=== PATIENT | male | born 1990 | race Caucasian/White ===

== ENCOUNTER 2024-01-20 01:46 | Inpatient (IN) | payer BC, SELFPAY ==
[2024-01-20] VITALS (10 sets, daily range): BP systolic 128–149; BP diastolic 75–97; PULSE 63–85; RESP 15–18; TEMP 36.1–36.6; O2SAT 95–100
--- NOTE | ~2024-01-20 | US_ITS ---
US abdomen limited INDICATION: Epigastric pain PROCEDURE: Realtime right upper abdominal ultrasound. COMPARISON: No prior studies for comparison. FINDINGS: The pancreas is normal without focal mass or pancreatic ductal dilation. Liver echotexture is increased, consistent with fatty infiltration. There is normal directional flow in the portal ve in. Bladder wall is mildly thickened. No definite gallbladder stones Common bile duct measures 8 mm. No sonographic Leigh's sign. IMPRESSION: 1: Gallbladder wall thickening with mild dilation of the common bile duct. Consider a calculus cholec ystitis in the appropriate clinical setting. 2: Fatty infiltration of the liver. Reviewed, dictated and finalized at location B. IMPRESSION: 1: Gallbladder wall thickening with mild dilation of the common bile duct. Cons ider a calculus cholecystitis in the appropriate clinical setting. 2: Fatty infiltration of the liver.
--- NOTE | ~2024-01-20 | CT_ITS ---
CT of the Abdomen and Pelvis: Indication: Abdominal pain Technique: 2.5 mm axial scans were obtained through the abdomen and pelvis following intravenous adm inistration of 100 cc of Omnipaque 350. Dose reduction technique was used on this scan by utilizing a utomated exposure control and iterative reconstruction technique. The dose-length product (DLP) was 1 797.91 mGy-cm. Findings: Scans through the lung bases are unremarkable. There is gallbladder sludge and small stones with probable mild gallbladder wall thickening and minim al pericholecystic inflammatory change. There is mild periportal edema. There are probable distal com mon bile duct calcified stones, measuring 3 mm and 6 mm respectively (axial images 81, 85). The splee n, pancreas, adrenals and kidneys are within normal limits. No evidence of aortic aneurysm. No lymp hadenopathy. No bowel obstruction or bowel wall thickening. There is no evidence to suggest acute appendicitis. Images through the pelvis were performed. Urinary bladder unremarkable. No pelvic mass seen. No ascit es. Impression: Cholelithiasis and gallbladder sludge, with probable superimposed acute cholecystitis. Correlate clin ically. Consider HIDA scan for further evaluation as indicated. Probable distal common bile duct stones, as detailed above, compatible choledocholithiasis. No CT omero dence for acute pancreatitis. Reviewed, dictated and finalized at location . Impression: Cholelithiasis and gallbladder sludge, with probable superimposed acute cholecy stitis. Correlate clinically. Consider HIDA scan for further evaluation as shahriar cated. Probable distal common bile duct stones, as detailed above, compatible choledoc holithiasis. No CT evidence for acute pancreatitis.
--- NOTE | ~2024-01-20 | MR_ITS ---
EXAMINATION: MR MRCP wo/w con/w 3D wo ind DATE: 01/20/2024 12:20 INDICATION: Right upper quadrant abdominal pain. Assess for choledocholithiasis. TECHNIQUE: Magnetic resonance imaging (MRI) of the abdomen was performed without and with 20 mL Multi ethan intravenous contrast. Sequences included coronal T2-weighted SS-FSE, coronal T2-weighted FS SS- FSE, coronal T2-weighted FS FIESTA, axial T2-weighted FS FIESTA, axial T2-weighted FIESTA, sagittal T 2-weighted SS-FSE, axial T1-weighted dual-echo FSPGR, axial T2-weighted SS-FSE, axial T1-weighted LAV A, axial T2-weighted STIR FSE. Thick-slab T2-weighted FRFSE-XL images were obtained for magnetic reso nance cholangiopancreatography (MRCP). Rotating maximum intensity projection 3-D reconstructions of t he volumetric data were created by the technologist. Postcontrast sequences included a time course of axial T1-weighted LAVA. COMPARISON: CT dated 01/10/2024 FINDINGS: ABDOMEN MRI: Heart size is normal. No pericardial or pleural effusion. There is diffuse mild intrahepatic biliary ductal dilation. Liver is otherwise normal. There are multiple gallstones within the gallbladder whic h demonstrates diffuse mild gallbladder wall thickening and minimal pericholecystic edema consistent with acute cholecystitis pancreas, spleen, bilateral adrenal glands and kidneys are normal. Visualize d portions of bowels are unremarkable with no obstruction. No pathologically enlarged abdominal or up per pelvic lymphadenopathy. Normal bone marrow signal throughout. ABDOMEN MRCP: Mild central intrahepatic biliary ductal dilation. The common hepatic duct is dilated to 10 mm and th e common bile duct to 9 mm which tapers distally. There is a 5 mm filling defect in the distalmost co mmon bile duct which appears to correspond to one of the previously seen calcified gallstones on prio r CT. There is likely some additional dependently layering sludge along the posterior margin of the s lightly more proximal distal common bile duct. Main pancreatic duct is normal in caliber. IMPRESSION: 1. Cholelithiasis and choledocholithiasis with mild intra and extra hepatic biliary ductal dilation a nd gallbladder wall thickening with pericholecystic edema consistent with associated acute cholecysti tis. Reviewed, dictated and finalized at location A. IMPRESSION: 1. Cholelithiasis and choledocholithiasis with mild intra and extra hepatic arti iary ductal dilation and gallbladder wall thickening with pericholecystic edema consistent with associated acute cholecystitis.
--- NOTE | ~2024-01-20 | XR_ITS ---
EXAMINATION: XR ERCP DATE: 01/21/2024 12:10 INDICATION: Gallstones TECHNIQUE: 11 spot fluoroscopic images of the right upper quadrant were obtained during endoscopic re trograde cholangiopancreatography (ERCP) performed by Dr. Jaspal Whitaker. Radiologist was not presen t for the imaging or procedure. The amount of fluoroscopy time used during this procedure was 2.8 min utes. COMPARISON: MRCP dated 01/10/2024 FINDINGS: Images demonstrate endoscopic cannulation and contrast opacification of the common bile duct. There a re lucent filling defects seen in the distal common bile duct on the initial images. A lucent balloon is seen sweeping through the common bile duct. IMPRESSION: 1. Fluoroscopy utilized during likely balloon extraction of choledocholithiasis. Please refer to the ERCP procedure note for additional details. Reviewed, dictated and finalized at location A. IMPRESSION: 1. Fluoroscopy utilized during likely balloon extraction of choledocholithiasis . Please refer to the ERCP procedure note for additional details.
[2024-01-20 02:15] LABS: Basophils Absolute Auto 0.1 K/mm3 (0.0-0.1); Basophils Percent Auto 0.3 % (0.2-1.2); Eosinophils Percent Auto 0.2 % (0-4.4); Hematocrit 42.5 % (42.0-52.0); Immature Granulocyte Absolute 0.12 K/mm3 (0.00-0.031); Immature Granulocyte Percent A 0.6 % (0-0.5); Lymphocytes Absolute Auto 1.66 K/mm3 (0.9-3.2); Lymphocytes Percent Auto 8.1 % (18.3-44.2); Mean Corpuscular HGB Conc 32.9 g/dl (32-36); Mean Corpuscular Hemoglobin 28.6 pg (26-34); Mean Corpuscular Volume 86.7 fl (80-100); Mean Platelet Volume 9.5 fl (7.4-10.4); Monocytes Absolute Auto 0.9 K/mm3 (0.1-0.6); Monocytes Percent Auto 4.6 % (2.6-8.5); Neutrophils Absolute Auto 17.6 K/mm3 (1.3-6.7); Neutrophils Percent Auto 86.2 % (45.5-73.1); Platelet Count Result 387 k/mm3 (150-375); Red Cell Distribution Width 12.9 % (11.5-14.5); White Blood Count 20.4 K/mm3 (4.5-10.0)
--- NOTE | 2024-01-20 02:17 | ECG_ITS ---
Test Date: 2024-01-20 02:35:41 Measurements Intervals [place] Rate: 73 P: 37 TX: 156 QRS: 40 QRSD: 109 T: 20 QT: 395 QTc: 437 Interpretive Statements SINUS RHYTHM INCOMPLETE RIGHT BUNDLE BRANCH BLOCK [90+ ms QRS DURATION, TERMINAL R IN V1/V2, 40+ ms S IN I/aVL/V4/V5/V6] No previous ECG available for comparison Electronically Signed On 01-20-2024 10:53:18 CDT by Tomas Mckeon M.D.
--- NOTE | 2024-01-20 02:18 | ED.ABDPAIN ---
HPI - Abdominal Pain General Chief Complaint: Abdominal Pain <JORDAN Raman Last Filed: 01/20/24 02:49> Stated Complaint: gallbladder attack <JORDAN Raman Last Filed: 01/20/24 02:49> Time Seen by Provider: 01/20/24 02:02 <Marya Harrell PA-C - Last Filed: 01/20/24 02:49> History of Present Illness HPI narrative: 33-year-old male presents to emergency department concerned for gallbladder attack. Patient states he had spicy tacos for dinner and around 11:00 p.m. when he was trying to go to sleep he began having pain in his epigastrium. He reports a history of similar symptoms in states he was told it was a gallbladder attack previously. He reports nausea 1 episode of emesis. He denies chest pain or shortness of breath, fever. No prior abdominal surgeries. Denies dysuria or hematuria. Last bowel movement was today and normal. Denies melena, hematochezia, hematemesis or coffee-ground emesis. <Marya Harrell PA-C - Last Filed: 01/20/24 02:49> Related Data Allergies/Adverse Reactions: Allergies Allergy/AdvReac Type Severity Reaction Status Date / Time aspirin Allergy Unknown Unknown Verified 01/20/24 01:47 erythromycin base Allergy Unknown Skin Verified 01/20/24 01:47 Reaction ibuprofen Allergy Unknown Skin Verified 01/20/24 01:47 Reaction Penicillins Allergy Unknown Skin Verified 01/20/24 01:47 Reaction <JORDAN Raman Last Filed: 01/20/24 02:49> Review of Systems Review of Systems: CONSTITUTIONAL: Denies fever, chills, or sweats. EYES: Denies visual changes, redness, or discharge. ENT: Denies rhinorrhea, congestion, sore throat, or otalgia. CARDIOVASCULAR: Denies chest pain, palpitations, or edema. RESPIRATORY: Denies cough or dyspnea. GASTROINTESTINAL: See HPI GENITOURINARY: Denies dysuria or hematuria. SKIN: Denies rash or itching. MUSCULOSKELETAL: Denies back pain, joint pain, or myalgia. NEUROLOGIC: Denies headache, numbness, or weakness. PSYCHIATRIC: Denies anxiety or depression. <JORDAN Raman Last Filed: 01/20/24 02:49> [facility] Family History Family History: Family History (Updated 07/01/18 @ 11:14 by DOCTOR UNKNOWN) Other Depression Hypertension No family history of cardiovascular disease <JORDAN Raman Last Filed: 01/20/24 02:49> Social History Social History: Social History Smoking status: Never smoker Alcohol intake: never <JORDAN Raman Last Filed: 01/20/24 02:49> Exam Narrative: GENERAL: ill appearing, morbidly obese with BMI of 41.9, and in no acute distress. HEAD: Normocephalic, atraumatic. EYES: PERRLA and EOMI. ENT: Nares clear, no rhinorrhea or epistaxis. Mucous membranes moist. NECK: Supple. CHEST: Clear to auscultation. No respiratory distress. HEART: Regular rate and rhythm. No murmur heard. Normal peripheral pulses. ABDOMEN: normoactive bowel sounds. Abdomen soft with tenderness in the epigastrium with guarding. No rebound or rigidity. No CVA tenderness. EXTREMITIES: Normal range of motion. No edema. SKIN: Warm, dry, no rash. NEURO: No focal deficits. Alert and oriented x3 <JORDAN Raman Last Filed: 01/20/24 02:49> Course Vital Signs Vital signs: Vital Signs Temperature 36.1 C L 01/20/24 01:49 Pulse Rate 85 01/20/24 01:49 Respiratory Rate 17 01/20/24 01:49 Blood Pressure 145/80 H 01/20/24 01:49 Pulse Oximetry 98 01/20/24 01:49 Oxygen Delivery Room Air 01/20/24 01:49 Temperature 36.1 C L 01/20/24 01:49 Pulse Rate 73 01/20/24 03:26 Respiratory Rate 16 01/20/24 03:26 Blood Pressure 141/91 H 01/20/24 03:26 Pulse Oximetry 100 01/20/24 03:26 Oxygen Delivery Room Air 01/20/24 01:49 <JORDAN Raman Last Filed: 06/11/24 02:49> Vital Signs Temperature 36.1 C L 01/20/24 01:49 Pulse Rate 85 01/20/24 01:49 Respiratory Rate 17 01/09
[2024-01-20] MEDS: SODIUM CHLORIDE 0.9% IV 1,000 ML 999 ML IV CONT (02:21)
[2024-01-20] MEDS: FAMOTIDINE 20 MG/2 ML VIAL IV PUSH (02:22)
[2024-01-20] MEDS: ONDANSETRON INJ 4 MG/2 ML VIAL IV PUSH (02:22)
--- NOTE | 2024-01-20 02:25 | PC.NURSE ---
Patient refuses straight catheter.
[2024-01-20 02:30] LABS: Alanine Aminotransferase 57 U/L (6-50); Albumin Level 4.3 g/dL (3.5-5.1); Alkaline Phosphatase 160 U/L (38-126); Anion Gap 6 mmol/L (4-12); Aspartate Amino Transferase 93 U/L (17-59); Bilirubin,Total 1.1 mg/dL (0.2-1.3); Blood Urea Nitrogen 9 mg/dL (9-20); Carbon Dioxide 31 mmol/L (22-30); Chloride 102 mmol/L (98-107); Estimated CRCL calculation 147 ml/min; Estimated Glomerular Filt Rate > 60; Glucose 204 mg/dL (65-110); Lipase 78 U/L (23-300); Potassium 3.8 mmol/L (3.4-5.0); Sodium 139 mmol/L (137-145)
[2024-01-20 02:42] LABS: Troponin I < 0.012 ng/mL (0.000-0.034)
[2024-01-20] MEDS: MORPHINE SULFATE (*CRX) 4 MG/ML INJ IV PUSH (02:55)
[2024-01-20] MEDS: HYDROmorphone HCL INJ (*CRX) 1 MG/ML SYR IV PUSH ×4 (03:48→20:58)
[2024-01-20] MEDS: metroNIDAZOLE 500 MG/ISO 100ML 500 MG/100 ML BAG 100 MG IVPB (04:20)
--- NOTE | 2024-01-20 04:32 | PM.IMHP ---
H&P: HPI History of Present Illness Date/Time: 01/20/24 04:32 Chief Complaint: epigastric pain Narrative: This is a 32 male with past medical history significant for obesity, patient presents to the emergency room with epigastric pain that has been a steady for the last several hours with radiation to the back had some nausea and vomiting with it has had this pain on and off since the last week however became persistent which prompted him to present to the emergency room. Patient denies any fevers, rigors, chills, cough, sputum production. He rates his pain at a 7/10 intensity. Preliminary workup was significant for CT of abdomen and pelvis with choledocholithiasis and cholecystitis. Patient has been admitted for further evaluation management and treatment. At the time of this dictation official CT reading is pending CT of the Abdomen and Pelvis: Indication: Abdominal pain Technique: 2.5 mm axial scans were obtained through the abdomen and pelvis following intravenous administration of 100 cc of Omnipaque 350. Dose reduction technique was used on this scan by utilizing automated exposure control and iterative reconstruction technique. The dose-length product (DLP) was 1797.91 mGy-cm. Findings: Scans through the lung bases are unremarkable. There is gallbladder sludge and small stones with probable mild gallbladder wall thickening and minimal pericholecystic inflammatory change. There is mild periportal edema. There are probable distal common bile duct calcified stones, measuring 3 mm and 6 mm respectively (axial images 81, 85). The spleen, pancreas, adrenals and kidneys are within normal limits. No evidence of aortic aneurysm. No lymphadenopathy. No bowel obstruction or bowel wall thickening. There is no evidence to suggest acute appendicitis. Images through the pelvis were performed. Urinary bladder unremarkable. No pelvic mass seen. No ascites. Impression: Cholelithiasis and gallbladder sludge, with probable superimposed acute cholecystitis. Correlate clinically. Consider HIDA scan for further evaluation as indicated. Probable distal common bile duct stones, as detailed above, compatible choledocholithiasis. No CT evidence for acute pancreatitis. US abdomen limited INDICATION: Epigastric pain PROCEDURE: Realtime right upper abdominal ultrasound. COMPARISON: No prior studies for comparison. FINDINGS: The pancreas is normal without focal mass or pancreatic ductal dilation. Liver echotexture is increased, consistent with fatty infiltration. There is normal directional flow in the portal vein. Bladder wall is mildly thickened. No definite gallbladder stones Common bile duct measures 8 mm. No sonographic Leigh's sign. IMPRESSION: 1: Gallbladder wall thickening with mild dilation of the common bile duct. Consider a calculus cholecystitis in the appropriate clinical setting. 2: Fatty infiltration of the liver. Review of Systems Review of Systems: Epigastric pain, nausea, vomiting Constitutional: Constitutional: Denies chills, Denies fever(s) and Reports poor appetite Eyes: Eyes: Denies change in vision ENT: Denies dysphagia and Denies odynophagia Cardiovascular: Cardiovascular: Denies chest pain, Denies leg edema, Denies radiating jaw, neck or arm pain and Denies palpitations Respiratory: Respiratory: Denies cough, Denies excessive phlegm production and Denies dyspnea Gastrointestinal: Gastrointestinal: Reports abdominal pain, Denies dyspepsia, Denies heartburn, Denies diarrhea, Reports nausea and Reports vomiting Genitourinary: Genitourinary: Denies dysuria and Denies flank pain Musculoskeletal: Musculoskeletal: Denies myalgias Integumentary/Breasts: Skin/Breast: Denies rash Neurologic: Denies focal weakness and Denies Sensory deficit (Neuro) Psychiatric: Psychiatric: Reports no additional psychiatric complaints and Reports as per HPI Endocrine: Endocrine: Denies cold intolera
[2024-01-20 04:33] LABS: Appearance Urine Clear (Clear); Bilirubin Urine Negative (Negative); Blood Urine Negative (Negative); Color Urine Yellow (Yellow); Glucose Urine UA Negative (Negative); Ketones Urine Negative (Negative); Leukocyte Esterase Ur Negative LEU/UL (Negative); Nitrate Urine Negative (Negative); Protein Urine Negative (Negative); Specific Grav Ur 1.028 (1.001-1.035)
[2024-01-20 04:47] LABS: Add Urine Microscopic? NO
--- NOTE | 2024-01-20 05:00 | ADMGEN ---
This patient, Sidney Bowles, was admitted to Medical Room 346-01. Patient/family oriented to hospital policies and general routines including ID bracelet, bed and alarms, visiting hours, pain management, procedures, bathroom and other care routines, personal items, smoking policy, room service/diet, and visiting hours. Information on how to activate the Rapid Response Team has been discussed. Patient/Family are encouraged to report perceived risks to care and to ask questions if they do not understand what they are told or what they should do.
[2024-01-20] MEDS: SODIUM CHLORIDE 0.9% IV 1,000 ML 125 ML IV CONT ×2 (05:38→16:26)
[2024-01-20] MEDS: CIPROFLOXACIN 400 MG/D5W 200ML 200 ML 200 MG IVPB (08:22)
--- NOTE | 2024-01-20 10:35 | PM.IMPN ---
Progress Note: A&P Assessment and Plan (1) Acute calculous cholecystitis: Code(s): K80.00 - Calculus of gallbladder with acute cholecystitis without obstruction Status: Acute Assessment and Plan: 01/20/24: CT of the abdomen pelvis showing cholelithiasis and gallbladder sludge with probable superimposed acute cholecystitis, possible distal common bile duct stones compatible with choledocholithiasis. Ultrasound of abdomen showing gallbladder wall thickening with mild dilatation of the common bile duct, fatty infiltration of the liver GI and General surgery consulted MRCP pending Patient received a dose of Flagyl and Cipro while in the ED Continue pain control Continue nausea control Time Spent With Patient Time with patient: Greater than 35 minutes Subjective Date/time seen: 01/20/24 10:35 Interval history: Is a 33-year-old male presented to the emergency room today with abdominal pain. Patient states he was eating some spicy tacos for dinner around 11:00 p.m. and started having epigastric pain when he went to lie down to sleep. He reports 1 episode of nausea and vomiting. Workup in the hospital included an abdomen pelvis CT which showed cholelithiasis and gallbladder sludge with prominent superimposed acute cholecystitis, possible distal common bile duct stones compatible with choledocholithiasis. Ultrasound of abdomen shows gallbladder wall thickening with mild dilatation of the common bile duct, fatty infiltration of the liver. Labs today showed a white blood cell count of 20.4, AST 93, ALT 57, alk-phos 160, troponin negative. UA was obtained and was negative. Blood cultures were obtained and pending. Patient was given 1 L of normal saline while in the ED, Zofran, Pepcid, morphine, Dilaudid, and Flagyl. Patient was started on Cipro as well. GI was consulted. On examination today patient is alert and oriented x3, lying in the bed. Family is at the bedside. Patient denies any fever, chills, nausea, vomiting, diarrhea, abdominal pain, chest pain or shortness of breath. MRCP done today, awaiting results. GI and General surgery consulted. Patient denies any acute pain at this time. Review of Systems Review of Systems: All systems reviewed & are unremarkable except as noted in HPI and below Constitutional: Constitutional: Reports as per HPI and Reports no additional constitutional complaints Eyes: Eyes: Reports as per HPI and Reports no additional eye complaints ENT: Reports system reviewed and no additional complaints, except as documented and Reports as per HPI Cardiovascular: Cardiovascular: Reports as per HPI and Reports no additional cardiovascular complaints Respiratory: Respiratory: Reports as per HPI and Reports no additional respiratory complaints Gastrointestinal: Gastrointestinal: Reports as per HPI and Reports no additional gastrointestinal complaints Genitourinary: Genitourinary: Reports no additional male genitourinary complaints and Reports as per HPI Musculoskeletal: Musculoskeletal: Reports no additional musculoskeletal complaints and Reports as per HPI Integumentary/Breasts: Skin/Breast: Reports system reviewed and no additional complaints, except as docu and Reports as per HPI Neurologic: Reports system reviewed and no additional complaints, except as documented and Reports as per HPI Psychiatric: Psychiatric: Reports no additional psychiatric complaints and Reports as per HPI Exam Narrative: General: In no acute distress, well nourished Head: atraumatic, no encephalopathy Eyes: EOMI, PERRLA, sclera clear ENT: moist mucous membranes, nasal passages clear Neck: supple, no JVD, no adenopathy, trachea midline Cardiac: Normal S1 and S2. No murmur, gallops or friction rubs, peripheral pulses intact. Respiratory: Lungs clear to auscultation, no adventitious lung sounds, currently on room air Gastrointestinal: soft, non-distended, non-tender, normoactive bowel sounds. : voiding without d
--- NOTE | 2024-01-20 11:24 | PC.NURSE ---
Patient off of unit to MRI
--- NOTE | 2024-01-20 14:46 | WPDGICN ---
Assessment and Plan Assessment and plan (1) RUQ pain: Code(s): R10.11 - Right upper quadrant pain Status: Acute Assessment and Plan: CT scan is not definitive for bile duct stones, pending MRCP- if confirm finding of choledocholithiasis then we will do ERCP tomorrow, otherwise just only need surgical evaluation for lap marky (2) Acute calculous cholecystitis: Code(s): K80.00 - Calculus of gallbladder with acute cholecystitis without obstruction Status: Acute Assessment and Plan: symptomatic medical treatment and surgery to see (3) Nausea & vomiting: Code(s): R11.2 - Nausea with vomiting, unspecified Status: Acute (4) Leukocytosis: Code(s): D72.829 - Elevated white blood cell count, unspecified Status: Acute Assessment and Plan: on abx (5) Elevated liver enzymes: Code(s): R74.8 - Abnormal levels of other serum enzymes Status: Acute Assessment and Plan: monitor GI Consult Note Consult date/time: 01/20/24 14:46 Reason for consult: ruq pain HPI: Sidney Bowles is a 33 year old male with no major medical problems, no abdominal surgeries. Here after new onset of severe pain in upper abdomen after he had spicy tacos for dinner, also had nausea with emesis. He has been recovering from cold infection and lasts night also had cough spell. Similar history in the past when was told that probably had GB problem. He denies chest pain or shortness of breath, fever. WB 20k, normal bili, transaminases 70-90, CT scan showed cholelithiasis and gallbladder sludge, with probable superimposed acute cholecystitis. Probable distal common bile duct stones. Pain has improved. MRCP just completed but report pending. Denies history of pancreatitis, no alcohol use. Review of Systems Constitutional: Constitutional: Denies chills Eyes: Eyes: Denies blurry vision ENT: Reports Normal hearing present Cardiovascular: Cardiovascular: Denies chest pain Respiratory: Respiratory: Denies cough Gastrointestinal: Gastrointestinal: Reports abdominal pain and Reports nausea Genitourinary: Genitourinary: Denies dysuria Musculoskeletal: Musculoskeletal: Denies neck pain Integumentary/Breasts: Skin/Breast: Denies rash Neurologic: Denies Abnormal speech present Psychiatric: Psychiatric: Denies behavioral changes [facility] Past Medical History Medical History (Updated 01/20/24 @ 14:50 by Nacho Severino MD) Elevated liver enzymes Leukocytosis Nausea & vomiting RUQ pain Family History Family History (Updated 07/01/18 @ 11:14 by DOCTOR UNKNOWN) Other Depression Hypertension No family history of cardiovascular disease Social History Social History Smoking status: Never smoker Alcohol intake: never Substance use: never Substance use type: does not use Do You Feel Safe in your Home?: Yes Lack of Transportation: No Lack of Food: Never True Current Housing: I Have Housing Concerned About Future Housing: No Difficulty Paying Gas/Electric Bills: No Difficulty Paying for Meds: No Currently Unemployed: No Education: High School Diploma/GED Difficulty w/ Childcare or Family Care: No Spiritual care concerns: No Meds Home Medications and Allergies Home Medications Medication Instructions Recorded Confirmed Type melatonin 10 mg tablet 10 mg PO HS PRN Insomnia 01/20/24 01/20/24 History Allergies Allergy/AdvReac Type Severity Reaction Status Date / Time aspirin Allergy Unknown Unknown Verified 01/20/24 01:47 erythromycin base Allergy Unknown Skin Verified 01/20/24 01:47 Reaction ibuprofen Allergy Unknown Skin Verified 01/20/24 01:47 Reaction Penicillins Allergy Unknown Skin Verified 01/20/24 01:47 Reaction Vital Signs Vital Signs - 24 hr 01/20/24 01:49 01/20/24 02:13 01/20/24 03:26 Temperature 97.0 F L Pulse Rate 85 81 73 Respiratory Rate 17 16 16 Blood Pre
--- NOTE | 2024-01-20 15:00 | PM.CNGS ---
Assessment and Plan Assessment and plan (1) Choledocholithiasis with acute cholecystitis: Code(s): K80.42 - Calculus of bile duct with acute cholecystitis without obstruction Status: Acute Assessment and Plan: CT and ultrasound reviewed. There is evidence of cholecystitis with small gallstones and sludge in the gallbladder. CT also suggests possible gallstones in the distal common bile duct. Total bilirubin is normal on labs. AST, ALT, and alk phos are all mildly elevated. GI has been consulted and MRCP is pending. If MRCP shows stones in the common bile duct, then he will need an ERCP. We also discussed treatment options for acute cholecystitis if the MRCP is negative for common duct stones, including nonoperative management with dietary modifications versus proceeding with a laparoscopic cholecystectomy that would be done under general anesthesia. Description of the procedure, risks, benefits, expected outcomes, and expected recovery were discussed with the patient in detail. We discussed the risks of bile leak and bile duct injury, liver/bowel injury, bleeding, and infection. We also discussed that if he has choledocholithiasis, then cholecystectomy would still be recommended to prevent recurrence and future complications with his gallstones. Patient understands and agrees to proceed with surgery when appropriate. We will continue to follow along to decipher timing of surgery. (2) Elevated liver enzymes: Code(s): R74.8 - Abnormal levels of other serum enzymes Status: Acute Assessment and Plan: AST, ALT, and alk phos mildly elevated. Total bilirubin normal. CT showing possible choledocholithiasis. No evidence of pancreatitis and lipase normal. Trend labs, await MRCP results. (3) Obesity, morbid, BMI 40.0-49.9: Code(s): E66.01 - Morbid (severe) obesity due to excess calories Status: Acute Plan I have discussed the patient's case and plan of care with Dr. Perez Thank you for allowing us to see the patient in consultation and we will continue to follow along with you. History of Present Illness Consult details Consult date: 01/20/24 Reason for consult: other (Cholecystitis) Requesting physician: Steve William MD Narrative: This is a 33-year-old man who presented to the ER last night with complaints of epigastric abdominal pain. His pain began around 11:00 p.m. last night a few hours after eating tacos for dinner. No radiating factors for his pain. He has had this pain intermittently over the past 2 years, but reports the episodes are mild and infrequent. His PCP ordered an outpatient ultrasound about 2 years ago and told him his symptoms were gallbladder related. He denies being referred to a surgeon and was told just to monitor himself. The abdominal pain he had last night was more severe and persisted without any alleviating factors. He had associated nausea and 1 episode of vomiting. He then came into the ER for evaluation. Vital signs stable and he was afebrile in the ER. Labs showed a white blood cell count 20,400, lactic acid 1.0, total bilirubin 1.1, AST 93, ALT 57, alk-phos 160, lipase 78, troponin less than 0.012. UA unremarkable. CT scan of the abdomen and pelvis showed cholelithiasis and gallbladder sludge with probable superimposed acute cholecystitis. Also seen is probable distal common bile duct stones. Right upper quadrant abdominal ultrasound showed gallbladder wall thickening with mild dilation of the common bile duct measuring 8 mm, and fatty infiltration of the liver. He was admitted to the hospitalist service. He has been given 1 dose of ciprofloxacin and metronidazole. MRCP ordered and results pending. GI has been consulted. He is now seen on the medical floor as we were consulted for surgical evaluation of cholecystitis. Review of Systems Review of Systems: All systems reviewed & are unremarkable except as noted in HPI and below PMFSH Past Medical History Medical
[2024-01-20] MEDS: HYDROmorphone HCL INJ (*CRX) 1 MG/ML SYR 0.5 MG IV PUSH (15:33)
[2024-01-21] VITALS (12 sets, daily range): BP systolic 114–144; BP diastolic 66–83; PULSE 66–86; RESP 16–25; TEMP 36–36.8; O2SAT 93–100
[2024-01-21] MEDS: SODIUM CHLORIDE 0.9% IV 1,000 ML 125 ML IV CONT ×3 (01:07→20:44)
[2024-01-21 05:40] LABS: Hematocrit 40.1 % (42.0-52.0); Mean Corpuscular HGB Conc 32.4 g/dl (32-36); Mean Corpuscular Hemoglobin 28.6 pg (26-34); Mean Corpuscular Volume 88.3 fl (80-100); Mean Platelet Volume 9.6 fl (7.4-10.4); Platelet Count Result 353 k/mm3 (150-375); Red Blood Count 4.54 M/mm3 (4.6-6.20); Red Cell Distribution Width 13.2 % (11.5-14.5); White Blood Count 12.4 K/mm3 (4.5-10.0)
[2024-01-21 05:52] LABS: Alanine Aminotransferase 217 U/L (6-50); Albumin Level 3.6 g/dL (3.5-5.1); Alkaline Phosphatase 162 U/L (38-126); Anion Gap 5 mmol/L (4-12); Aspartate Amino Transferase 187 U/L (17-59); Bilirubin,Total 2.2 mg/dL (0.2-1.3); Blood Urea Nitrogen 5 mg/dL (9-20); Calcium 8.3 mg/dL (8.4-10.2); Carbon Dioxide 27 mmol/L (22-30); Chloride 108 mmol/L (98-107); Estimated CRCL calculation 164 ml/min; Estimated Glomerular Filt Rate > 60; Glucose 103 mg/dL (65-110); Potassium 3.5 mmol/L (3.4-5.0); Sodium 140 mmol/L (137-145)
[2024-01-21 06:08] LABS: Prothrombin Time 13.9 Seconds (11.1-14.7)
--- NOTE | 2024-01-21 09:39 | PM.IMPN ---
Progress Note: A&P Assessment and Plan (1) Acute calculous cholecystitis: Code(s): K80.00 - Calculus of gallbladder with acute cholecystitis without obstruction Status: Acute (2) Obesity, morbid, BMI 40.0-49.9: Code(s): E66.01 - Morbid (severe) obesity due to excess calories Status: Acute (3) Choledocholithiasis with acute cholecystitis: Code(s): K80.42 - Calculus of bile duct with acute cholecystitis without obstruction Status: Acute (4) Elevated liver enzymes: Code(s): R74.8 - Abnormal levels of other serum enzymes Status: Acute Plan Acute cholecystitis CT of the abdomen pelvis showing cholelithiasis and gallbladder sludge with probable superimposed acute cholecystitis, possible distal common bile duct stones compatible with choledocholithiasis. Ultrasound of abdomen showing gallbladder wall thickening with mild dilatation of the common bile duct, fatty infiltration of the liver GI and General surgery consulted MRCP Cholelithiasis and choledocholithiasis with mild intra and extra hepatic biliary ductal dilation and gallbladder wall thickening with pericholecystic edema consistent with associated acute cholecystitis. Patient received a dose of Flagyl and Cipro while in the ED Continue pain control Continue nausea control PPI BID NPO elevated Liver enzymes Likely secondary to cholelithiasis with mild dilation the common bile Trend Obesity encourage increased on physical activity and lifestyle modifications Lipid panel pending encourage outpatient weight loss clinic BMI . Diet exercise counseling done. consult to dietitian Code status: Full code per patient DVT prophylaxis: SCD's Stress ulcer prophylaxis: Protonix 40 daily PT/OT notes: ambulatory Disposition: Patient admitted to the medical unit cholecystitis underwent ERCP today for stone removal and scheduled for cholecystectomy in the a.m. can likely discharge to home postprocedure. Time Spent With Patient Time with patient: 15 - 25 minutes Subjective Date/time seen: 01/21/24 09:39 Interval history: Admission: Medical Chart Is a 33-year-old male presented to the emergency room today with abdominal pain. Patient states he was eating some spicy tacos for dinner around 11:00 p.m. and started having epigastric pain when he went to lie down to sleep. He reports 1 episode of nausea and vomiting. Workup in the hospital included an abdomen pelvis CT which showed cholelithiasis and gallbladder sludge with prominent superimposed acute cholecystitis, possible distal common bile duct stones compatible with choledocholithiasis. Ultrasound of abdomen shows gallbladder wall thickening with mild dilatation of the common bile duct, fatty infiltration of the liver. Labs today showed a white blood cell count of 20.4, AST 93, ALT 57, alk-phos 160, troponin negative. UA was obtained and was negative. Blood cultures were obtained and pending. Patient was given 1 L of normal saline while in the ED, Zofran, Pepcid, morphine, Dilaudid, and Flagyl. Patient was started on Cipro as well. GI was consulted. On examination today patient is alert and oriented x3, lying in the bed. Family is at the bedside. Patient denies any fever, chills, nausea, vomiting, diarrhea, abdominal pain, chest pain or shortness of breath. MRCP done today, awaiting results. GI and General surgery consulted. Patient denies any acute pain at this time. 01/20: assumed care Patient seen post ERCP with stone removal, denies pain or any acute distress.) Laparatomy cholecystitis scheduled for a.m. Review of Systems Review of Systems: All systems reviewed & are unremarkable except as noted in HPI and below Exam Narrative: General: In no acute distress, well nourished Head: atraumatic, no encephalopathy Eyes: EOMI, PERRLA, sclera clear ENT: moist mucous membranes, nasal passages clear Neck: supple, no JVD, no adenopath
[2024-01-21 10:06] LABS: Cholesterol 128 mg/dL (0-200); HDL Direct 30 mg/dL; Triglycerides 69 mg/dL (<150)
[2024-01-21] MEDS: LACTATED RINGERS 1,000 ML 150 ML IV CONT (10:16)
[2024-01-21 10:17] LABS: LDL Cholesterol Direct 81 mg/dL
--- NOTE | 2024-01-21 10:34 | WPDANESEPPF ---
Anes - Initial Pre Proc Eval Procedure: Operation Date: 01/21/24 12:00 Proposed Procedures p Endoscopic Retro Cholangiopancreatogram - Nacho Severino MD Date/Time: 01/21/24 10:34 Surgeon: Sophia Marinelli APRN Pre Op Diagnosis: Choledocolithiasis Patient Data Age: 33 Gender: M Height: 1.8 m Weight: 136.2 kg Last Vital Signs Temp 96.9 F L 01/21/24 10:19 Pulse 73 01/21/24 10:19 Resp 18 01/21/24 10:19 BP 141/83 H 01/21/24 10:19 Pulse Ox 97 01/21/24 10:19 O2 Del Method Room Air 01/21/24 10:19 FiO2 21 01/20/24 20:00 Allergies Allergy/AdvReac Type Severity Reaction Status Date / Time aspirin Allergy Unknown Unknown Verified 01/21/24 10:18 erythromycin base Allergy Unknown Skin Verified 01/21/24 10:18 Reaction ibuprofen Allergy Unknown Skin Verified 01/21/24 10:18 Reaction Penicillins Allergy Unknown Skin Verified 01/21/24 10:18 Reaction Home Medications Medication Instructions Recorded Confirmed Type melatonin 10 mg tablet 10 mg PO HS PRN Insomnia 01/20/24 01/20/24 History Laboratory Tests 01/21/24 01/21/24 05:22 05:24 WBC 12.4 H K/mm3 (4.5-10.0) RBC 4.54 L M/mm3 (4.6-6.20) Hgb 13.0 L g/dL (14.0-18.0) Hct 40.1 L % (42.0-52.0) MCV 88.3 fl (80-100) MCH 28.6 pg (26-34) MCHC 32.4 g/dl (32-36) RDW 13.2 % (11.5-14.5) Plt Count 353 k/mm3 (150-375) MPV 9.6 fl (7.4-10.4) PT 13.9 Seconds (11.1-14.7) INR 1.0 Sodium 140 mmol/L (137-145) Potassium 3.5 mmol/L (3.4-5.0) Chloride 108 H mmol/L (98-107) Carbon Dioxide 27 mmol/L (22-30) Anion Gap 5 mmol/L (4-12) BUN 5 L mg/dL (9-20) Creatinine 0.80 mg/dL (0.7-1.3) Estim Creat Clear Calc 164 ml/min Estimated GFR > 60 (59 - ) Glucose 103 mg/dL (65-110) Calcium 8.3 L mg/dL (8.4-10.2) Total Bilirubin 2.2 H mg/dL (0.2-1.3) AST 187 H U/L (17-59) ALT 217 H U/L (6-50) Alkaline Phosphatase 162 H U/L (38-126) Total Protein 7.0 g/dL (6.3-8.2) Albumin 3.6 g/dL (3.5-5.1) Triglycerides 69 mg/dL (<150) Cholesterol 128 mg/dL (0-200) LDL Cholesterol Direct 81 mg/dL HDL Direct 30 mg/dL Patient hx anesthesia problems: none Family hx anesthesia problems: none Results Review: All pre-operative results and documents have been reviewed as part of the pre-operative evaluation. [facility] Past Medical History Medical History Insomnia RUQ pain Surgical History Surgical History History of surgery on arm Family History Family History Other Depression Hypertension No family history of cardiovascular disease Social History Social History Smoking status: Never smoker Alcohol intake: never Substance use: never Substance use type: does not use Do You Feel Safe in your Home?: Yes Lack of Transportation: No Lack of Food: Never True Current Housing: I Have Housing Concerned About Future Housing: No Difficulty Paying Gas/Electric Bills: No Difficulty Paying for Meds: No Currently Unemployed: No Education: High School Diploma/GED Difficulty w/ Childcare or Family Care: No Spiritual care concerns: No Anes - Eval Final PreProcedure Day of Procedure 01/21/24 10:34 Patient weight: morbidly obese Heart: regular rate and rhythm Lungs: clear to auscultation Airway: Mallampati scale Neurological: alert and oriented Last oral intake: >/= 8 hours ASA classification: III Emergent: no Anesthetic plan: proceed Anesthesia type and monitoring: general GIVS and standard monitoring Resul
[2024-01-21] MEDS: INDOMETHACIN 50 MG SUPP.RECT RECTAL (11:32)
[2024-01-21] MEDS: PANTOPRAZOLE SODIUM IV 40 MG VIAL IV PUSH ×2 (14:05→20:44)
--- NOTE | 2024-01-21 14:06 | PM.PNGS ---
Progress Note: A&P Assessment and Plan (1) Choledocholithiasis with acute cholecystitis: Code(s): K80.42 - Calculus of bile duct with acute cholecystitis without obstruction Status: Acute Assessment and Plan: Patient recovering after successful ERCP with CBD stone extraction. Discussed proceeding with laparoscopic cholecystectomy. Will tentatively plan for surgery tomorrow as long as patient recovers well from ERCP. I discussed the procedure, risks, benefits, and alternatives. Questions answered. (2) Elevated liver enzymes: Code(s): R74.8 - Abnormal levels of other serum enzymes Status: Acute Subjective Subjective Date/Time Seen: 01/21/24 14:06 Interval history: Patient back from ERCP this AM. Still a little sedated but otherwise doing well. Mother in the room with him. Exam GI: Inspection: non-distended GI Palp: Yes Soft to palpation, No Tenderness to palpation present (GI) and No Guarding due to palpation present (GI) Objective Data Vital Signs Vital Signs: Vital Signs - 24 hr 01/20/24 20:00 01/20/24 23:03 01/21/24 05:59 Temperature 36.4 C 36.8 C Pulse Rate 65 70 86 Respiratory Rate 18 18 20 Blood Pressure 149/92 H 115/66 Pulse Oximetry 96 96 93 Oxygen Delivery Room Air Oxygen Flow Rate Fraction of Inspired Oxygen 21 01/21/24 08:10 01/21/24 10:19 01/21/24 12:12 Temperature 36.1 C L 36.5 C Pulse Rate 73 74 Respiratory Rate 18 25 H Blood Pressure 141/83 H 119/76 Pulse Oximetry 97 100 Oxygen Delivery Room Air Room Air Simple Face Mask Oxygen Flow Rate 6 Fraction of Inspired Oxygen 01/21/24 12:22 01/21/24 12:32 01/21/24 12:42 Temperature Pulse Rate 73 70 82 Respiratory Rate 25 H 21 H 16 Blood Pressure 118/73 117/76 120/73 Pulse Oximetry 100 100 93 Oxygen Delivery Simple Face Mask Oxygen Flow Rate 6 Fraction of Inspired Oxygen 01/21/24 12:52 01/21/24 13:02 01/21/24 13:12 Temperature Pulse Rate 84 75 66 Respiratory Rate 21 H 20 22 H Blood Pressure 115/76 117/77 114/74 Pulse Oximetry 94 94 95 Oxygen Delivery Oxygen Flow Rate Fraction of Inspired Oxygen Intake/Output Intake/Output: Intake & Output 01/18/24 01/19/24 01/20/24 01/21/24 23:59 23:59 23:59 23:59 Intake Total 2200 2195.8 Balance 2200 2195.8 Meds/Results Medications: Active Medications Generic Name Dose Route Start Last Admin Trade Name Freq PRN Reason Stop Dose Admin Hydromorphone HCl 1 mg 01/20/24 15:20 01/20/24 20:58 Hydromorphone Hcl Inj (*Crx) 1 Mg/Ml Syr IV PUSH 1 mg Q3H PRN Administration Pain Rated 7-10 Hydromorphone HCl 0.5 mg 01/20/24 15:19 01/20/24 15:33 Hydromorphone Hcl Inj (*Crx) 1 Mg/Ml Syr IV PUSH 0.5 mg Q3H PRN Administration Pain Rated 4-6 Sodium Chloride 1,000 mls @ 125 mls/hr 01/20/24 04:20 01/21/24 09:05 Normal Saline Iv IV CONT 125 mls/hr .Q8H JADE Administration Melatonin 10 mg 01/20/24 10:40 Melatonin 5 Mg Tablet PO HS PRN Insomnia Pantoprazole Sodium 40 mg 01/21/24 09:40 01/21/24 14:05 Pantoprazole Sodium Iv 40 Mg Vial IV PUSH 40 mg Q12HR JADE Administration Radiology Results: ITS Impressions Abdomen/Pelvis CT 01/20/24 05:46 Impression: Cholelithiasis and gallbladder sludge, with probable superimposed acute cholecystitis. Correlate clinically. Consider HIDA scan for further evaluation as indicated. Probable distal common bile duct stones, as detailed above, compatible choledocholithiasis. No CT evidence for acute pancreatitis. Abdomen Ultrasound 01/20/24 09:17 IMPRESSION: 1: Gallbladder wall thickening with mild dilation of the common bile duct. Consider a calculus cholecystitis in the appropriate clinical setting. 2: Fatty infiltration of the liver. MRCP 01/20/24 15:34 IMPRESSION: 1. Cholelithiasis and choledocholithiasis with mild intra and extra hepatic biliary ductal dilation and g
[2024-01-22] VITALS (14 sets, daily range): BP systolic 113–155; BP diastolic 56–95; PULSE 64–92; RESP 16–24; TEMP 35.9–37; O2SAT 93–100
[2024-01-22] MEDS: SODIUM CHLORIDE 0.9% IV 1,000 ML 125 ML IV CONT (05:39)
[2024-01-22 06:11] LABS: Hemoglobin 12.5 g/dL (14.0-18.0); Mean Corpuscular HGB Conc 32.1 g/dl (32-36); Mean Corpuscular Hemoglobin 28.2 pg (26-34); Mean Platelet Volume 9.8 fl (7.4-10.4); Platelet Count Result 372 k/mm3 (150-375); Red Blood Count 4.43 M/mm3 (4.6-6.20); Red Cell Distribution Width 13.4 % (11.5-14.5); White Blood Count 12.8 K/mm3 (4.5-10.0)
[2024-01-22 06:21] LABS: Alanine Aminotransferase 246 U/L (6-50); Albumin Level 3.6 g/dL (3.5-5.1); Alkaline Phosphatase 174 U/L (38-126); Anion Gap 7 mmol/L (4-12); Aspartate Amino Transferase 110 U/L (17-59); Bilirubin,Total 1.2 mg/dL (0.2-1.3); Blood Urea Nitrogen 6 mg/dL (9-20); Calcium 8.4 mg/dL (8.4-10.2); Carbon Dioxide 28 mmol/L (22-30); Chloride 107 mmol/L (98-107); Estimated CRCL calculation 164 ml/min; Estimated Glomerular Filt Rate > 60; Glucose 99 mg/dL (65-110); Potassium 3.8 mmol/L (3.4-5.0); Sodium 142 mmol/L (137-145)
[2024-01-22] MEDS: PANTOPRAZOLE SODIUM IV 40 MG VIAL IV PUSH ×2 (07:48→20:18)
--- NOTE | 2024-01-22 09:03 | WPDANESPN ---
Anes - Prog Note Post-Op Date/Time: 01/22/24 09:03 Cardiovascular status: normal Respiratory status: normal Airway patency: baseline Mental status: baseline Post-Op hydration status: normal Vital Signs: Last Vital Signs Temp 35.9 C L 01/22/24 06:31 Pulse 64 01/22/24 06:31 Resp 18 01/22/24 06:31 BP 113/56 L 01/22/24 06:31 Pulse Ox 96 01/22/24 08:00 O2 Del Method Room Air 01/22/24 08:00 O2 Flow Rate 6 01/21/24 12:22 FiO2 21 01/20/24 20:00 Pain Score (VAS): 0 I/O: Intake & Output 01/21/24 01/22/24 01/22/24 23:59 07:59 15:59 Intake Total 1220 1740 Balance 1220 1740 Laboratory Tests 01/22/24 05:37 01/22/24 05:37 01/21/24 01/22/24 05:22 05:37 WBC 12.8 H RBC 4.43 L Hgb 12.5 L Hct 39.0 L MCV 88.0 MCH 28.2 MCHC 32.1 RDW 13.4 Plt Count 372 MPV 9.8 Sodium 142 Potassium 3.8 Chloride 107 Carbon Dioxide 28 Anion Gap 7 BUN 6 L Creatinine 0.80 Estim Creat Clear Calc 164 Estimated GFR > 60 Glucose 99 Calcium 8.4 Total Bilirubin 1.2 AST 110 H ALT 246 H Alkaline Phosphatase 174 H Total Protein 7.0 Albumin 3.6 Triglycerides 69 Cholesterol 128 LDL Cholesterol Direct 81 HDL Direct 30 Post-procedural complaints: none Patient Feedback: Patient satisfied with anesthetic care.
[2024-01-22] MEDS: LACTATED RINGERS 1,000 ML 30 ML IV CONT ×2 (11:00→13:50)
--- NOTE | 2024-01-22 12:08 | WPDHPUPDATE1 ---
History and Physical Update Update Date/Time: 01/22/24 12:08 History and Physical has been reviewed, including an updated exam of the patient. There are NO changes in the patient's condition. Risks, benefits, and alternatives have been discussed and questions answered. Patient agrees to proceed with procedure.
--- NOTE | 2024-01-22 12:31 | WPDANESEPPF ---
Anes - Initial Pre Proc Eval Procedure: Operation Date: 01/21/24 12:00 Proposed Procedures p Endoscopic Retro Cholangiopancreatogram - Nacho Severino MD Operation Date: 01/22/24 12:00 Proposed Procedures p Laparoscopic Cholecystectomy, Possible Open - Michael Perez DO Date/Time: 01/22/24 12:31 Surgeon: Sophia Marinelli APRN Pre Op Diagnosis: Choledocolithiasis Patient Data Age: 33 Gender: M Height: 1.8 m Weight: 136.2 kg Last Vital Signs Temp 98.4 F 01/22/24 11:08 Pulse 68 01/22/24 11:08 Resp 18 01/22/24 11:08 BP 131/77 01/22/24 11:08 Pulse Ox 96 01/22/24 11:08 O2 Del Method Room Air 01/22/24 11:08 O2 Flow Rate 6 01/21/24 12:22 FiO2 21 01/20/24 20:00 Allergies Allergy/AdvReac Type Severity Reaction Status Date / Time aspirin Allergy Unknown Unknown Verified 01/22/24 11:11 erythromycin base Allergy Unknown Skin Verified 01/22/24 11:11 Reaction ibuprofen Allergy Unknown Skin Verified 01/22/24 11:11 Reaction Penicillins Allergy Unknown Skin Verified 01/22/24 11:11 Reaction Home Medications Medication Instructions Recorded Confirmed Type melatonin 10 mg tablet 10 mg PO HS PRN Insomnia 01/20/24 01/20/24 History Laboratory Tests 01/22/24 05:37 WBC 12.8 H K/mm3 (4.5-10.0) RBC 4.43 L M/mm3 (4.6-6.20) Hgb 12.5 L g/dL (14.0-18.0) Hct 39.0 L % (42.0-52.0) MCV 88.0 fl (80-100) MCH 28.2 pg (26-34) MCHC 32.1 g/dl (32-36) RDW 13.4 % (11.5-14.5) Plt Count 372 k/mm3 (150-375) MPV 9.8 fl (7.4-10.4) Sodium 142 mmol/L (137-145) Potassium 3.8 mmol/L (3.4-5.0) Chloride 107 mmol/L (98-107) Carbon Dioxide 28 mmol/L (22-30) Anion Gap 7 mmol/L (4-12) BUN 6 L mg/dL (9-20) Creatinine 0.80 mg/dL (0.7-1.3) Estim Creat Clear Calc 164 ml/min Estimated GFR > 60 (59 - ) Glucose 99 mg/dL (65-110) Calcium 8.4 mg/dL (8.4-10.2) Total Bilirubin 1.2 mg/dL (0.2-1.3) AST 110 H U/L (17-59) ALT 246 H U/L (6-50) Alkaline Phosphatase 174 H U/L (38-126) Total Protein 7.0 g/dL (6.3-8.2) Albumin 3.6 g/dL (3.5-5.1) Patient hx anesthesia problems: none Family hx anesthesia problems: none Results Review: All pre-operative results and documents have been reviewed as part of the pre-operative evaluation. COUNTS INCLUDE 234 BEDS AT THE [facility] Past Medical History Medical History Insomnia RUQ pain Surgical History Surgical History History of surgery on arm Family History Family History Other Depression Hypertension No family history of cardiovascular disease Social History Social History Smoking status: Never smoker Alcohol intake: never Substance use: never Substance use type: does not use Do You Feel Safe in your Home?: Yes Lack of Transportation: No Lack of Food: Never True Current Housing: I Have Housing Concerned About Future Housing: No Difficulty Paying Gas/Electric Bills: No Difficulty Paying for Meds: No Currently Unemployed: No Education: High School Diploma/GED Difficulty w/ Childcare or Family Care: No Spiritual care concerns: No Anes - Eval Final PreProcedure Day of Procedure 01/22/24 12:31 Patient weight: obese Heart: regular rate and rhythm Lungs: clear to auscultation Airway: Mallampati scale and special considerations (Teeth in post aspect, L side cracked. ) Neurological: alert and oriented Last oral intake: >/= 8 hours ASA classification: III Emergent: no Anesthetic plan: proceed Anesthesia type and monitoring: general ETT and standard monitoring Results Review: All pre-operative results and documents have been reviewed
[2024-01-22] MEDS: ceFAZolin 3 GM/D5W 100 ML 100 ML IVPB (12:36)
[2024-01-22] MEDS: BUPIVACAINE/EPINEPHRINE 0.5% 10 ML VIAL 30 ML INFILTRATE (13:05)
--- NOTE | 2024-01-22 13:46 | W.PM.PROC2 ---
Procedure Note - Detailed Date of Procedure 01/22/24 Pre-op Diagnosis Choledocholithiasis, acute cholecystitis Post-op Diagnosis Same Procedure Performed Laparoscopic Cholecystectomy Surgeon Michael Perez, DO Anesthesia General and Local (0.5% bupivacaine) Indications This is a 33-year-old man who presented to the emergency department with upper abdominal pain with nausea and vomiting. His symptoms started shortly after eating dinner. He was found to have an elevated white blood count and slightly elevated liver enzymes. Imaging showed evidence of acute cholecystitis and dilated common bile duct concerning for choledocholithiasis. MRCP showed evidence of choledocholithiasis and then he underwent ERCP 01/21/2024. Discussions were made with the patient about further treatment options and decision was made to proceed with laparoscopic cholecystectomy, possible open. Findings Laparoscopic cholecystectomy was performed. The patient's gallbladder appeared to have evidence chronic gallbladder wall thickening and pericholecystic adhesions. The cystic duct appeared dilated and the neck the gallbladder was also very dilated. Was a lot of induration and adhesions around the neck of the gallbladder trailing into the cystic duct. Eventually that was able to view my critical view of safety visualizing the cystic duct running directly into the neck of the gallbladder and the cystic artery running directly into the wall the gallbladder. Because of the amount of inflammation and how thickened the cystic duct was, I chose to place a 19 round Lee drain within the gallbladder fossa. The gallbladder was removed and sent to the lab for pathology. Description of Procedure Procedure as well as risks, benefits, and alternatives were discussed with patient. Written consent was obtained and placed in chart prior to procedure. The patient was brought back to surgical suite. Patient was placed in supine position on operating table. Time-out was done to confirm patient and procedure. Patient was then intubated by the anesthesia department. Abdomen was prepped and draped in sterile fashion using chlorhexidine prep. 0.5% bupivacaine with epinephrine was infiltrated at each site of incision. A 5 millimeter incision was made near the umbilicus, and a 5 millimeter Optiview trocar was advanced through the abdominal layers under direct visualization. Once inside the abdominal cavity, carbon dioxide was insufflated to create a pneumoperitoneum. The camera was inserted and the abdomen was inspected. No immediate abnormalities were identified. The patient was placed in reverse Trendelenburg position and rotated slightly to the left. An 11 millimeter incision was made in the subxiphoid region, and an 11 millimeter trocar was inserted under direct visualization. Two 5 millimeter incisions were made in the right upper quadrant, and two 5 millimeter trocars were inserted under direct visualization. The gallbladder was identified and grasped at the fundus and retracted superiorly. It was then grasped at the infundibulum retracted laterally. Careful dissection around the neck of the gallbladder was performed using blunt dissection with a [place] grasper and hook electrocautery. The cystic duct was identified, and a window was created behind it. The cystic artery was also identified and a window was created behind it. The critical view of safety was identified, visualizing the cystic duct running directly into the neck of the gallbladder, and the cystic artery running directly into the wall of the gallbladder. A 5 millimeter clip radiation protection technician was then used to place 2 clips proximally and 1 clip distally on both the cystic duct and cystic artery. They were then both transected using endoscopic scissors. Once safely away from the viri hepatitis, the gallbladder was dissected free from the liver bed using hook electrocautery. Hemostasis was achieved along the way. The gallbladder was re
[2024-01-22] MEDS: HYDROmorphone HCL INJ (*CRX) 1 MG/ML SYR 0.25 MG IV PUSH ×4 (14:24→14:50)
--- NOTE | 2024-01-22 14:33 | SUR.PHASEI ---
Simple mask removed at 2735.
--- NOTE | 2024-01-22 16:14 | PM.IMPN ---
Progress Note: A&P Assessment and Plan (1) Acute calculous cholecystitis: Code(s): K80.00 - Calculus of gallbladder with acute cholecystitis without obstruction Status: Acute (2) Obesity, morbid, BMI 40.0-49.9: Code(s): E66.01 - Morbid (severe) obesity due to excess calories Status: Acute (3) Choledocholithiasis with acute cholecystitis: Code(s): K80.42 - Calculus of bile duct with acute cholecystitis without obstruction Status: Acute (4) Elevated liver enzymes: Code(s): R74.8 - Abnormal levels of other serum enzymes Status: Acute Plan Acute cholecystitis CT of the abdomen pelvis showing cholelithiasis and gallbladder sludge with probable superimposed acute cholecystitis, possible distal common bile duct stones compatible with choledocholithiasis. Ultrasound of abdomen showing gallbladder wall thickening with mild dilatation of the common bile duct, fatty infiltration of the liver GI and General surgery consulted MRCP Cholelithiasis and choledocholithiasis with mild intra and extra hepatic biliary ductal dilation and gallbladder wall thickening with pericholecystic edema consistent with associated acute cholecystitis. Patient received a dose of Flagyl and Cipro while in the ED Continue pain control Continue nausea control PPI BID NPO 01/21 Laparoscopic cholecystomy CARISSA drain present monitor output Advance to clear liquids Follow-up CMP CBC in a.m. Advance diet per surgery elevated Liver enzymes Likely secondary to cholelithiasis with mild dilation the common bile Trend Obesity encourage increased on physical activity and lifestyle modifications Lipid panel pending encourage outpatient weight loss clinic BMI . Diet exercise counseling done. consult to dietitian Code status: Full code per patient DVT prophylaxis: SCD's Stress ulcer prophylaxis: Protonix 40 daily PT/OT notes: ambulatory Disposition: Patient continues admission after ERCP with stone removal and laparoscopic cholecystectomy today advance to clear liquid diet with CARISSA drain in place. Will discharge home when medically stable. Time Spent With Patient Time with patient: 15 - 25 minutes Subjective Date/time seen: 01/22/24 16:14 Interval history: Admission: Medical Chart Is a 33-year-old male presented to the emergency room today with abdominal pain. Patient states he was eating some spicy tacos for dinner around 11:00 p.m. and started having epigastric pain when he went to lie down to sleep. He reports 1 episode of nausea and vomiting. Workup in the hospital included an abdomen pelvis CT which showed cholelithiasis and gallbladder sludge with prominent superimposed acute cholecystitis, possible distal common bile duct stones compatible with choledocholithiasis. Ultrasound of abdomen shows gallbladder wall thickening with mild dilatation of the common bile duct, fatty infiltration of the liver. Labs today showed a white blood cell count of 20.4, AST 93, ALT 57, alk-phos 160, troponin negative. UA was obtained and was negative. Blood cultures were obtained and pending. Patient was given 1 L of normal saline while in the ED, Zofran, Pepcid, morphine, Dilaudid, and Flagyl. Patient was started on Cipro as well. GI was consulted. On examination today patient is alert and oriented x3, lying in the bed. Family is at the bedside. Patient denies any fever, chills, nausea, vomiting, diarrhea, abdominal pain, chest pain or shortness of breath. MRCP done today, awaiting results. GI and General surgery consulted. Patient denies any acute pain at this time. 01/20: assumed care Patient seen post ERCP with stone removal, denies pain or any acute distress.) Laparatomy cholecystitis scheduled for a.m. 01/21: Patient underwent laparoscopic cholecystectomy, CARISSA drain in place will advance patient to clear liquid diet follow-up labs in the a.m. advance diet per surgery. Patient prior
[2024-01-22] MEDS: HYDROcodone/acetaminophen (*CRX) 5-325 MG TABLET 1 TAB PO (17:06)
--- NOTE | 2024-01-22 17:16 | WPDGIPROGNO ---
Progress Note: A&P Assessment and Plan (1) Choledocholithiasis with acute cholecystitis: Code(s): K80.42 - Calculus of bile duct with acute cholecystitis without obstruction Status: Acute Assessment and Plan: treated successfully with ercp yesterday and now will get lap marky (2) Elevated liver enzymes: Code(s): R74.8 - Abnormal levels of other serum enzymes Status: Acute Assessment and Plan: trending down (3) Leukocytosis: Code(s): D72.829 - Elevated white blood cell count, unspecified Status: Acute (4) RUQ pain: Code(s): R10.11 - Right upper quadrant pain Status: Chronic (5) Obesity, morbid, BMI 40.0-49.9: Code(s): E66.01 - Morbid (severe) obesity due to excess calories Status: Acute Subjective Date/time seen: 01/22/24 10:17 Interval history: ercp yesterday with large amount of sludge and few stones removed he is more comfortable and he will have lap marky later today Review of Systems Review of Systems: All systems reviewed & are unremarkable except as noted in HPI and below Exam Const: General: comfortable and no acute distress HENMT: Face/Nose/Sinus: Normal nares present Eyes: General: appearance normal, both eyes and all related structures Neck: Neck: supple Resp: Auscultation: clear to auscultation bilaterally Cardio: Rate: regular rate Rhythm: regular rhythm GI: Inspection: non-distended GI Palp: Yes Soft to palpation, Yes Tenderness to palpation present (GI) (mild ttp in epigastric and ruq, no rebound) and No Guarding due to palpation present (GI) Auscultation: normal bowel sounds Skin: General skin exam: normal color Neuro: Speech: normal speech Motor exam (neuro): 5/5 motor strength present throughout Extrem: General: normal to inspection Psych: Mental Status: mental status grossly normal Objective Data Vital Signs Vital Signs: Vital Signs - 24 hr 01/21/24 21:00 01/22/24 06:31 01/22/24 08:00 Temperature 96.8 F L 96.6 F L Pulse Rate 74 64 Respiratory Rate 20 18 Blood Pressure 144/82 H 113/56 L Pulse Oximetry 94 96 96 Oxygen Delivery Room Air Oxygen Flow Rate 01/22/24 11:08 01/22/24 13:50 01/22/24 14:05 Temperature 98.4 F 98.1 F Pulse Rate 68 81 76 Respiratory Rate 18 20 24 H Blood Pressure 131/77 131/77 137/94 H Pulse Oximetry 96 100 100 Oxygen Delivery Room Air Simple Face Mask Simple Face Mask Oxygen Flow Rate 8 8 01/22/24 14:20 01/22/24 14:35 01/22/24 14:50 Temperature 97.2 F L 97.2 F L Pulse Rate 77 82 77 Respiratory Rate 20 24 H 24 H Blood Pressure 131/77 155/92 H 153/95 H Pulse Oximetry 100 97 93 Oxygen Delivery Simple Face Mask Room Air Room Air Oxygen Flow Rate 8 01/22/24 14:59 01/22/24 15:15 01/22/24 15:30 Temperature 98.1 F 97.2 F L 97.3 F L Pulse Rate 79 76 76 Respiratory Rate 22 H 18 18 Blood Pressure 150/92 H 139/74 141/75 H Pulse Oximetry 93 94 94 Oxygen Delivery Room Air Oxygen Flow Rate 01/22/24 16:00 Temperature 96.9 F L Pulse Rate 77 Respiratory Rate 16 Blood Pressure 138/78 Pulse Oximetry 93 Oxygen Delivery Oxygen Flow Rate Intake/Output Intake/Output: Intake & Output 01/19/24 01/20/24 01/21/24 01/22/24 23:59 23:59 23:59 23:59 Intake Total 2200 3415.8 2240 Output Total 1340 Balance 2200 3415.8 900 Meds/Results Medications: Active Medications Generic Name Dose Route Start Last Admin Trade Name Freq PRN Reason Stop Dose Admin Hydrocodone Bitart/Acetaminophen 1 tab 01/22/24 15:04 01/22/24 17:06 Hydrocodone/Acetaminophen (*Crx) 5-325 Mg Tablet PO 1 tab Q4H PRN Administration Pain Rated 4-6 Hydrocodone Bitart/Acetaminophen 1 tab 01/22/24 15:04 Hydrocodone/Acetaminophen (*Crx) 10-325 Mg Tablet PO Q4H PRN Pain Rated 7-10 Diphenhydramine HCl 25 mg 01/22/24 15:04 Diphenhydramine Hcl Inj 50 Mg/Ml Vial IV PUSH Q6H PRN Itching Enoxaparin Sodium 40 mg
[2024-01-22] MEDS: HYDROmorphone HCL INJ (*CRX) 1 MG/ML SYR 0.5 MG IV PUSH (18:35)
[2024-01-22] MEDS: HYDROcodone/acetaminophen (*CRX) 10-325 MG TABLET 1 TAB PO (21:18)
[2024-01-23] VITALS (8 sets, daily range): BP systolic 120–149; BP diastolic 75–87; PULSE 65–83; RESP 16–18; TEMP 36.1–36.7; O2SAT 93–96
[2024-01-23] MEDS: HYDROcodone/acetaminophen (*CRX) 10-325 MG TABLET 1 TAB PO (05:43)
[2024-01-23 06:07] LABS: Hematocrit 39.7 % (42.0-52.0); Mean Corpuscular HGB Conc 32.7 g/dl (32-36); Mean Corpuscular Hemoglobin 28.7 pg (26-34); Mean Corpuscular Volume 87.6 fl (80-100); Mean Platelet Volume 9.7 fl (7.4-10.4); Platelet Count Result 395 k/mm3 (150-375); Red Blood Count 4.53 M/mm3 (4.6-6.20); Red Cell Distribution Width 13.6 % (11.5-14.5); White Blood Count 16.2 K/mm3 (4.5-10.0)
[2024-01-23 06:16] LABS: Alanine Aminotransferase 252 U/L (6-50); Albumin Level 3.8 g/dL (3.5-5.1); Alkaline Phosphatase 187 U/L (38-126); Anion Gap 7 mmol/L (4-12); Aspartate Amino Transferase 119 U/L (17-59); Bilirubin,Total 1.2 mg/dL (0.2-1.3); Blood Urea Nitrogen 6 mg/dL (9-20); Calcium 8.5 mg/dL (8.4-10.2); Carbon Dioxide 29 mmol/L (22-30); Chloride 105 mmol/L (98-107); Estimated CRCL calculation 164 ml/min; Estimated Glomerular Filt Rate > 60; Glucose 113 mg/dL (65-110); Potassium 3.4 mmol/L (3.4-5.0); Sodium 141 mmol/L (137-145)
--- NOTE | 2024-01-23 08:04 | PM.PNGS ---
Progress Note: A&P Assessment and Plan (1) Choledocholithiasis with acute cholecystitis: Code(s): K80.42 - Calculus of bile duct with acute cholecystitis without obstruction Status: Acute Assessment and Plan: Doing well on POD#1. Continue increasing activity. Will reassess later today. Might be able to go home this afternoon or tomorrow based on patient recovery. (2) Elevated liver enzymes: Code(s): R74.8 - Abnormal levels of other serum enzymes Status: Acute Subjective Subjective Date/Time Seen: 01/23/24 08:04 Interval history: Pain controlled. Tolerating diet so far. Not much energy to get up moving yet. Exam GI: Inspection: incision (intact with glue) and other (CARISSA serosanguinous) GI Palp: Yes Soft to palpation, Yes Tenderness to palpation present (GI) (incisional) and No Guarding due to palpation present (GI) Objective Data Vital Signs Vital Signs: Vital Signs - 24 hr 01/22/24 11:08 01/22/24 13:50 01/22/24 14:05 Temperature 36.9 C 36.7 C Pulse Rate 68 81 76 Respiratory Rate 18 20 24 H Blood Pressure 131/77 131/77 137/94 H Pulse Oximetry 96 100 100 Oxygen Delivery Room Air Simple Face Mask Simple Face Mask Oxygen Flow Rate 8 8 01/22/24 14:20 01/22/24 14:35 01/22/24 14:50 Temperature 36.2 C L 36.2 C L Pulse Rate 77 82 77 Respiratory Rate 20 24 H 24 H Blood Pressure 131/77 155/92 H 153/95 H Pulse Oximetry 100 97 93 Oxygen Delivery Simple Face Mask Room Air Room Air Oxygen Flow Rate 8 01/22/24 14:59 01/22/24 15:15 01/22/24 15:30 Temperature 36.7 C 36.2 C L 36.3 C L Pulse Rate 79 76 76 Respiratory Rate 22 H 18 18 Blood Pressure 150/92 H 139/74 141/75 H Pulse Oximetry 93 94 94 Oxygen Delivery Room Air Oxygen Flow Rate 01/22/24 16:00 01/22/24 17:00 01/22/24 20:16 Temperature 36.1 C L 36.1 C L 37.0 C Pulse Rate 77 92 82 Respiratory Rate 16 18 20 Blood Pressure 138/78 142/78 H 114/72 Pulse Oximetry 93 94 93 Oxygen Delivery Oxygen Flow Rate 01/22/24 20:00 01/23/24 00:15 01/23/24 04:49 Temperature 36.7 C 36.1 C L Pulse Rate 79 81 Respiratory Rate 18 18 Blood Pressure 120/75 134/81 Pulse Oximetry 94 93 Oxygen Delivery Room Air Oxygen Flow Rate 01/23/24 05:48 Temperature 36.1 C L Pulse Rate 81 Respiratory Rate 18 Blood Pressure 134/81 Pulse Oximetry 93 Oxygen Delivery Oxygen Flow Rate Intake/Output Intake/Output: Intake & Output 01/20/24 01/21/24 01/22/24 01/23/24 23:59 23:59 23:59 23:59 Intake Total 2200 3415.8 2600 600 Output Total 1950 630 Balance 2200 3415.8 650 -30 Meds/Results Medications: Active Medications Generic Name Dose Route Start Last Admin Trade Name Freq PRN Reason Stop Dose Admin Hydrocodone Bitart/Acetaminophen 1 tab 01/22/24 15:04 01/22/24 17:06 Hydrocodone/Acetaminophen (*Crx) 5-325 Mg Tablet PO 1 tab Q4H PRN Administration Pain Rated 4-6 Hydrocodone Bitart/Acetaminophen 1 tab 01/22/24 15:04 01/23/24 05:43 Hydrocodone/Acetaminophen (*Crx) 10-325 Mg Tablet PO 1 tab Q4H PRN Administration Pain Rated 7-10 Diphenhydramine HCl 25 mg 01/22/24 15:04 Diphenhydramine Hcl Inj 50 Mg/Ml Vial IV PUSH Q6H PRN Itching Enoxaparin Sodium 40 mg 01/23/24 09:00 Enoxaparin 40 Mg/0.4 Ml Syringe SUB-Q DAILY JADE Hydromorphone HCl 1 mg 01/22/24 15:04 Hydromorphone Hcl Inj (*Crx) 1 Mg/Ml Syr IV PUSH Q2H PRN Breakthrough Pain Rated 7-10 or NPO Hydromorphone HCl 0.5 mg 01/22/24 15:04 01/22/24 18:35 Hydromorphone Hcl Inj (*Crx) 1 Mg/Ml Syr IV PUSH 0.5 mg Q2H PRN Administration Breakthrough Pain Rated 4-6 or NPO Melatonin 10 mg 01/20/24 10:40 Melatonin 5 Mg Tablet PO HS PRN Insomnia Naloxone HCl 0.1 mg 01/22/24 15:04 Naloxone Hcl 0.4 Mg/Ml Vial IV PUSH Q2M PRN Opiate Reversal Ondansetron HCl 4 mg 01/22/24 15:04 Ondansetron Inj 4 Mg/2 Ml Vial IV PUSH Q4H PRN
[2024-01-23] MEDS: ENOXAPARIN 40 MG/0.4 ML SYRINGE SUB-Q (08:18)
[2024-01-23] MEDS: PANTOPRAZOLE SODIUM IV 40 MG VIAL IV PUSH ×2 (08:18→20:26)
--- NOTE | 2024-01-23 12:27 | WPDANESPN ---
Anes - Prog Note Post-Op Date/Time: 01/23/24 12:27 Cardiovascular status: normal Respiratory status: normal Airway patency: baseline Mental status: baseline Post-Op hydration status: normal Vital Signs: Last Vital Signs Temp 36.2 C L 01/23/24 08:49 Pulse 74 01/23/24 08:49 Resp 16 01/23/24 08:49 BP 131/87 01/23/24 08:49 Pulse Ox 93 01/23/24 08:49 O2 Del Method Room Air 01/22/24 20:00 O2 Flow Rate 8 01/22/24 14:20 FiO2 21 01/20/24 20:00 Pain Score (VAS): 09/20 I/O: Intake & Output 01/22/24 01/23/24 01/23/24 23:59 07:59 15:59 Intake Total 360 600 480 Output Total 625 630 Balance -265 -30 480 Laboratory Tests 01/23/24 05:42 01/23/24 05:42 01/23/24 05:42 WBC 16.2 H RBC 4.53 L Hgb 13.0 L Hct 39.7 L MCV 87.6 MCH 28.7 MCHC 32.7 RDW 13.6 Plt Count 395 H MPV 9.7 Sodium 141 Potassium 3.4 Chloride 105 Carbon Dioxide 29 Anion Gap 7 BUN 6 L Creatinine 0.80 Estim Creat Clear Calc 164 Estimated GFR > 60 Glucose 113 H Calcium 8.5 Total Bilirubin 1.2 AST 119 H ALT 252 H Alkaline Phosphatase 187 H Total Protein 7.0 Albumin 3.8 Post-procedural complaints: none Patient Feedback: Patient satisfied with anesthetic care.
[2024-01-23] MEDS: HYDROcodone/acetaminophen (*CRX) 5-325 MG TABLET 1 TAB PO ×2 (12:45→18:25)
--- NOTE | 2024-01-23 15:08 | PM.IMPN ---
Progress Note: A&P Assessment and Plan (1) Acute calculous cholecystitis: Code(s): K80.00 - Calculus of gallbladder with acute cholecystitis without obstruction Status: Acute (2) Obesity, morbid, BMI 40.0-49.9: Code(s): E66.01 - Morbid (severe) obesity due to excess calories Status: Acute (3) Choledocholithiasis with acute cholecystitis: Code(s): K80.42 - Calculus of bile duct with acute cholecystitis without obstruction Status: Acute (4) Elevated liver enzymes: Code(s): R74.8 - Abnormal levels of other serum enzymes Status: Acute Plan Acute cholecystitis CT of the abdomen pelvis showing cholelithiasis and gallbladder sludge with probable superimposed acute cholecystitis, possible distal common bile duct stones compatible with choledocholithiasis. Ultrasound of abdomen showing gallbladder wall thickening with mild dilatation of the common bile duct, fatty infiltration of the liver GI and General surgery consulted MRCP Cholelithiasis and choledocholithiasis with mild intra and extra hepatic biliary ductal dilation and gallbladder wall thickening with pericholecystic edema consistent with associated acute cholecystitis. Patient received a dose of Flagyl and Cipro while in the ED Continue pain control Continue nausea control PPI BID NPO 01/21 Laparoscopic cholecystomy CARISSA drain present monitor output Advance to clear liquids Follow-up CMP CBC in a.m. Advance diet per surgery 01/22 POD 1 full liquid diet CARISSA drain D/C elevated Liver enzymes Likely secondary to cholelithiasis with mild dilation the common bile Trend Obesity encourage increased on physical activity and lifestyle modifications Lipid panel pending encourage outpatient weight loss clinic BMI . Diet exercise counseling done. consult to dietitian Code status: Full code per patient DVT prophylaxis: SCD's Stress ulcer prophylaxis: Protonix 40 daily PT/OT notes: ambulatory Disposition: Patient continues admission after ERCP with stone removal and laparoscopic cholecystectomy today advance to full liquid diet. Will discharge home when medically stable. Time Spent With Patient Time with patient: 15 - 25 minutes Subjective Date/time seen: 01/23/24 15:08 Interval history: Admission: Medical Chart Is a 33-year-old male presented to the emergency room today with abdominal pain. Patient states he was eating some spicy tacos for dinner around 11:00 p.m. and started having epigastric pain when he went to lie down to sleep. He reports 1 episode of nausea and vomiting. Workup in the hospital included an abdomen pelvis CT which showed cholelithiasis and gallbladder sludge with prominent superimposed acute cholecystitis, possible distal common bile duct stones compatible with choledocholithiasis. Ultrasound of abdomen shows gallbladder wall thickening with mild dilatation of the common bile duct, fatty infiltration of the liver. Labs today showed a white blood cell count of 20.4, AST 93, ALT 57, alk-phos 160, troponin negative. UA was obtained and was negative. Blood cultures were obtained and pending. Patient was given 1 L of normal saline while in the ED, Zofran, Pepcid, morphine, Dilaudid, and Flagyl. Patient was started on Cipro as well. GI was consulted. On examination today patient is alert and oriented x3, lying in the bed. Family is at the bedside. Patient denies any fever, chills, nausea, vomiting, diarrhea, abdominal pain, chest pain or shortness of breath. MRCP done today, awaiting results. GI and General surgery consulted. Patient denies any acute pain at this time. 01/20: assumed care Patient seen post ERCP with stone removal, denies pain or any acute distress.) Laparatomy cholecystitis scheduled for a.m. 01/21: Patient underwent laparoscopic cholecystectomy, CARISSA drain in place will advance patient to clear liquid diet follow-up labs in the a.m. advance diet
--- NOTE | 2024-01-23 15:50 | WPDGIPROGNO ---
Progress Note: A&P Assessment and Plan (1) Choledocholithiasis with acute cholecystitis: Code(s): K80.42 - Calculus of bile duct with acute cholecystitis without obstruction Status: Acute Assessment and Plan: treated successfully with ercp and lap marky recovering from surgery diet per surgery (2) Elevated liver enzymes: Code(s): R74.8 - Abnormal levels of other serum enzymes Status: Acute Assessment and Plan: monitor (3) Leukocytosis: Code(s): D72.829 - Elevated white blood cell count, unspecified Status: Acute (4) RUQ pain: Code(s): R10.11 - Right upper quadrant pain Status: Chronic (5) Obesity, morbid, BMI 40.0-49.9: Code(s): E66.01 - Morbid (severe) obesity due to excess calories Status: Acute Subjective Date/time seen: 01/23/24 15:50 Interval history: some abdominal discomfort, recovering from surgery janee drain in place Review of Systems Review of Systems: All systems reviewed & are unremarkable except as noted in HPI and below Exam Const: General: comfortable HENMT: Face/Nose/Sinus: Normal nares present Eyes: Sclera: sclerae normal Neck: Neck: supple Resp: Effort & Inspection: normal respiratory effort Cardio: Rate: regular rate GI: Inspection: incision (intact with glue) and other (JANEE serosanguinous) GI Palp: Yes Soft to palpation, Yes Tenderness to palpation present (GI) (incisional) and No Guarding due to palpation present (GI) Skin: General skin exam: normal color Neuro: Speech: normal speech Motor exam (neuro): 5/5 motor strength present throughout Extrem: General: normal to inspection Psych: Mental Status: mental status grossly normal Objective Data Vital Signs Vital Signs: Vital Signs - 24 hr 01/22/24 16:00 01/22/24 17:00 01/22/24 20:16 Temperature 96.9 F L 97.0 F L 98.6 F Pulse Rate 77 92 82 Respiratory Rate 16 18 20 Blood Pressure 138/78 142/78 H 114/72 Pulse Oximetry 93 94 93 Oxygen Delivery 01/22/24 20:00 01/23/24 00:15 01/23/24 04:49 Temperature 98.1 F 97.0 F L Pulse Rate 79 81 Respiratory Rate 18 18 Blood Pressure 120/75 134/81 Pulse Oximetry 94 93 Oxygen Delivery Room Air 01/23/24 05:48 01/23/24 08:49 01/23/24 12:49 Temperature 97 F L 97.2 F L 97.5 F L Pulse Rate 81 74 83 Respiratory Rate 18 16 16 Blood Pressure 134/81 131/87 149/85 H Pulse Oximetry 93 93 93 Oxygen Delivery Intake/Output Intake/Output: Intake & Output 01/20/24 01/21/24 01/22/24 01/23/24 23:59 23:59 23:59 23:59 Intake Total 2200 3415.8 2600 1320 Output Total 1950 630 Balance 2200 3415.8 650 690 Meds/Results Medications: Active Medications Generic Name Dose Route Start Last Admin Trade Name Freq PRN Reason Stop Dose Admin Hydrocodone Bitart/Acetaminophen 1 tab 01/22/24 15:04 01/23/24 12:45 Hydrocodone/Acetaminophen (*Crx) 5-325 Mg Tablet PO 1 tab Q4H PRN Administration Pain Rated 4-6 Hydrocodone Bitart/Acetaminophen 1 tab 01/22/24 15:04 01/23/24 05:43 Hydrocodone/Acetaminophen (*Crx) 10-325 Mg Tablet PO 1 tab Q4H PRN Administration Pain Rated 7-10 Diphenhydramine HCl 25 mg 01/22/24 15:04 Diphenhydramine Hcl Inj 50 Mg/Ml Vial IV PUSH Q6H PRN Itching Enoxaparin Sodium 40 mg 01/23/24 09:00 01/23/24 08:18 Enoxaparin 40 Mg/0.4 Ml Syringe SUB-Q 40 mg DAILY JADE Administration Hydromorphone HCl 1 mg 01/22/24 15:04 Hydromorphone Hcl Inj (*Crx) 1 Mg/Ml Syr IV PUSH Q2H PRN Breakthrough Pain Rated 7-10 or NPO Hydromorphone HCl 0.5 mg 01/22/24 15:04 01/22/24 18:35 Hydromorphone Hcl Inj (*Crx) 1 Mg/Ml Syr IV PUSH 0.5 mg Q2H PRN Administration Breakthrough Pain Rated 4-6 or NPO Melatonin 10 mg 01/20/24 10:40 Melatonin 5 Mg Tablet PO HS PRN Insomnia Naloxone HCl 0.1 mg 01/22/24 15:04 Naloxone Hcl 0.4 Mg/Ml Vial IV PUSH Q2M PRN Opiate Reversal Ondansetron
[2024-01-24 05:36] LABS: Hematocrit 41.8 % (42.0-52.0); Hemoglobin 13.4 g/dL (14.0-18.0); Mean Corpuscular HGB Conc 32.1 g/dl (32-36); Mean Corpuscular Hemoglobin 28.3 pg (26-34); Mean Corpuscular Volume 88.2 fl (80-100); Mean Platelet Volume 9.6 fl (7.4-10.4); Platelet Count Result 369 k/mm3 (150-375); Red Blood Count 4.74 M/mm3 (4.6-6.20); Red Cell Distribution Width 13.6 % (11.5-14.5); White Blood Count 13.6 K/mm3 (4.5-10.0)
[2024-01-24 05:47] LABS: Alanine Aminotransferase 245 U/L (6-50); Albumin Level 3.7 g/dL (3.5-5.1); Alkaline Phosphatase 192 U/L (38-126); Anion Gap 6 mmol/L (4-12); Aspartate Amino Transferase 80 U/L (17-59); Blood Urea Nitrogen 7 mg/dL (9-20); Calcium 8.8 mg/dL (8.4-10.2); Carbon Dioxide 29 mmol/L (22-30); Chloride 104 mmol/L (98-107); Estimated CRCL calculation 164 ml/min; Estimated Glomerular Filt Rate > 60; Glucose 89 mg/dL (65-110); Potassium 3.3 mmol/L (3.4-5.0); Sodium 139 mmol/L (137-145)
[2024-01-24 06:07] VITALS: BP 123/80; PULSE 66; RESP 18; TEMP 36.8; O2SAT 92
[2024-01-24] MEDS: ENOXAPARIN 40 MG/0.4 ML SYRINGE SUB-Q (08:19)
[2024-01-24] MEDS: POTASSIUM CHLORIDE 20 MEQ ER TABLET 40 MEQ PO (08:19)
[2024-01-24] MEDS: PANTOPRAZOLE SODIUM IV 40 MG VIAL IV PUSH (08:19)
--- NOTE | 2024-01-24 11:36 | WPDGIPROGNO ---
Progress Note: A&P Assessment and Plan (1) Choledocholithiasis with acute cholecystitis: Code(s): K80.42 - Calculus of bile duct with acute cholecystitis without obstruction Status: Acute Assessment and Plan: treated successfully with ercp and lap marky recovering from surgery tolerating diet disposition per surgery will follow only as needed (2) Elevated liver enzymes: Code(s): R74.8 - Abnormal levels of other serum enzymes Status: Acute Assessment and Plan: GB/biliary source- treated trending down (3) Leukocytosis: Code(s): D72.829 - Elevated white blood cell count, unspecified Status: Acute Assessment and Plan: trending down (4) RUQ pain: Code(s): R10.11 - Right upper quadrant pain Status: Chronic (5) Obesity, morbid, BMI 40.0-49.9: Code(s): E66.01 - Morbid (severe) obesity due to excess calories Status: Acute Subjective Date/time seen: 01/24/24 11:36 Interval history: feeling better today and tolerating diet, CARISSA drain in place Review of Systems Review of Systems: All systems reviewed & are unremarkable except as noted in HPI and below Exam Const: General: comfortable HENMT: Face/Nose/Sinus: Normal nares present Eyes: Sclera: sclerae normal Neck: Neck: supple Resp: Effort & Inspection: normal respiratory effort Cardio: Rate: regular rate GI: Inspection: incision (intact with glue) and other (CARISSA serosanguinous) GI Palp: Yes Soft to palpation, Yes Tenderness to palpation present (GI) (incisional) and No Guarding due to palpation present (GI) Skin: General skin exam: normal color Neuro: Speech: normal speech Motor exam (neuro): 5/5 motor strength present throughout Extrem: General: normal to inspection Psych: Mental Status: mental status grossly normal Objective Data Vital Signs Vital Signs: Vital Signs - 24 hr 01/23/24 12:49 01/23/24 16:49 01/23/24 20:00 Temperature 97.5 F L 97.0 F L Pulse Rate 83 77 Respiratory Rate 16 16 Blood Pressure 149/85 H 142/82 H Pulse Oximetry 93 95 Oxygen Delivery Room Air 01/23/24 22:00 01/23/24 23:48 01/24/24 06:07 Temperature 97.5 F L 98.2 F Pulse Rate 65 66 Respiratory Rate 18 18 Blood Pressure 123/83 123/80 Pulse Oximetry 96 96 92 Oxygen Delivery Room Air Intake/Output Intake/Output: Intake & Output 01/21/24 01/22/24 01/23/24 01/24/24 23:59 23:59 23:59 23:59 Intake Total 3415.8 2600 2110 640 Output Total 1950 670 15 Balance 3415.8 650 1440 625 Meds/Results Medications: Active Medications Generic Name Dose Route Start Last Admin Trade Name Freq PRN Reason Stop Dose Admin Hydrocodone Bitart/Acetaminophen 1 tab 01/22/24 15:04 01/23/24 18:25 Hydrocodone/Acetaminophen (*Crx) 5-325 Mg Tablet PO 1 tab Q4H PRN Administration Pain Rated 4-6 Hydrocodone Bitart/Acetaminophen 1 tab 01/22/24 15:04 01/23/24 05:43 Hydrocodone/Acetaminophen (*Crx) 10-325 Mg Tablet PO 1 tab Q4H PRN Administration Pain Rated 7-10 Diphenhydramine HCl 25 mg 01/22/24 15:04 Diphenhydramine Hcl Inj 50 Mg/Ml Vial IV PUSH Q6H PRN Itching Enoxaparin Sodium 40 mg 01/23/24 09:00 01/24/24 08:19 Enoxaparin 40 Mg/0.4 Ml Syringe SUB-Q 40 mg DAILY JADE Administration Hydromorphone HCl 1 mg 01/22/24 15:04 Hydromorphone Hcl Inj (*Crx) 1 Mg/Ml Syr IV PUSH Q2H PRN Breakthrough Pain Rated 7-10 or NPO Hydromorphone HCl 0.5 mg 01/22/24 15:04 01/22/24 18:35 Hydromorphone Hcl Inj (*Crx) 1 Mg/Ml Syr IV PUSH 0.5 mg Q2H PRN Administration Breakthrough Pain Rated 4-6 or NPO Melatonin 10 mg 01/20/24 10:40 Melatonin 5 Mg Tablet PO HS PRN Insomnia Naloxone HCl 0.1 mg 01/22/24 15:04 Naloxone Hcl 0.4 Mg/Ml Vial IV PUSH Q2M PRN Opiate Reversal Ondansetron HCl 4 mg 01/22/24 15:04 Ondansetron Inj 4 Mg/2 Ml Vial IV PUSH Q4H PRN Nausea And Vomitin
[2024-01-24 14:45] VITALS: BP 110/72; PULSE 84; RESP 16; TEMP 36.7; O2SAT 95
--- NOTE | 2024-01-24 15:33 | PM.PNGS ---
Progress Note: A&P Assessment and Plan (1) Choledocholithiasis with acute cholecystitis: Code(s): K80.42 - Calculus of bile duct with acute cholecystitis without obstruction Status: Acute Assessment and Plan: Continuing to improve. OK to discharge today. Discharge instructions discussed with patient. F/u in 2 weeks. (2) Elevated liver enzymes: Code(s): R74.8 - Abnormal levels of other serum enzymes Status: Acute Subjective Subjective Date/Time Seen: 01/24/24 15:33 Interval history: Pain controlled. No fevers. Tolerating diet. Wants to go home. Exam GI: Inspection: incision (intact with glue) and other (CARISSA serosanguinous) GI Palp: Yes Soft to palpation, Yes Tenderness to palpation present (GI) (incisional) and No Guarding due to palpation present (GI) Objective Data Vital Signs Vital Signs: Vital Signs - 24 hr 01/23/24 16:49 01/23/24 20:00 01/23/24 22:00 Temperature 36.1 C L 36.4 C L Pulse Rate 77 65 Respiratory Rate 16 18 Blood Pressure 142/82 H 123/83 Pulse Oximetry 95 96 Oxygen Delivery Room Air 01/23/24 23:48 01/24/24 06:07 Temperature 36.8 C Pulse Rate 66 Respiratory Rate 18 Blood Pressure 123/80 Pulse Oximetry 96 92 Oxygen Delivery Room Air Intake/Output Intake/Output: Intake & Output 01/21/24 01/22/24 01/23/24 01/24/24 23:59 23:59 23:59 23:59 Intake Total 3415.8 2600 2110 640 Output Total 1950 670 15 Balance 3415.8 650 1440 625 Meds/Results Medications: Active Medications Generic Name Dose Route Start Last Admin Trade Name Freq PRN Reason Stop Dose Admin Hydrocodone Bitart/Acetaminophen 1 tab 01/22/24 15:04 01/23/24 18:25 Hydrocodone/Acetaminophen (*Crx) 5-325 Mg Tablet PO 1 tab Q4H PRN Administration Pain Rated 4-6 Hydrocodone Bitart/Acetaminophen 1 tab 01/22/24 15:04 01/23/24 05:43 Hydrocodone/Acetaminophen (*Crx) 10-325 Mg Tablet PO 1 tab Q4H PRN Administration Pain Rated 7-10 Diphenhydramine HCl 25 mg 01/22/24 15:04 Diphenhydramine Hcl Inj 50 Mg/Ml Vial IV PUSH Q6H PRN Itching Enoxaparin Sodium 40 mg 01/23/24 09:00 01/24/24 08:19 Enoxaparin 40 Mg/0.4 Ml Syringe SUB-Q 40 mg DAILY JADE Administration Hydromorphone HCl 1 mg 01/22/24 15:04 Hydromorphone Hcl Inj (*Crx) 1 Mg/Ml Syr IV PUSH Q2H PRN Breakthrough Pain Rated 7-10 or NPO Hydromorphone HCl 0.5 mg 01/22/24 15:04 01/22/24 18:35 Hydromorphone Hcl Inj (*Crx) 1 Mg/Ml Syr IV PUSH 0.5 mg Q2H PRN Administration Breakthrough Pain Rated 4-6 or NPO Melatonin 10 mg 01/20/24 10:40 Melatonin 5 Mg Tablet PO HS PRN Insomnia Naloxone HCl 0.1 mg 01/22/24 15:04 Naloxone Hcl 0.4 Mg/Ml Vial IV PUSH Q2M PRN Opiate Reversal Ondansetron HCl 4 mg 01/22/24 15:04 Ondansetron Inj 4 Mg/2 Ml Vial IV PUSH Q4H PRN Nausea And Vomiting Pantoprazole Sodium 40 mg 01/21/24 09:40 01/24/24 08:19 Pantoprazole Sodium Iv 40 Mg Vial IV PUSH 40 mg Q12HR JADE Administration Radiology Results: ITS Impressions Abdomen/Pelvis CT 01/20/24 05:46 Impression: Cholelithiasis and gallbladder sludge, with probable superimposed acute cholecystitis. Correlate clinically. Consider HIDA scan for further evaluation as indicated. Probable distal common bile duct stones, as detailed above, compatible choledocholithiasis. No CT evidence for acute pancreatitis. Abdomen Ultrasound 01/20/24 09:17 IMPRESSION: 1: Gallbladder wall thickening with mild dilation of the common bile duct. Consider a calculus cholecystitis in the appropriate clinical setting. 2: Fatty infiltration of the liver. MRCP 01/20/24 15:34 IMPRESSION: 1. Cholelithiasis and choledocholithiasis with mild intra and extra hepatic biliary ductal dilation and gallbladder wall thickening with pericholecystic edema consistent with associated acute cholecystitis.
--- NOTE | 2024-01-24 15:50 | PM.DS ---
DS: Admitting Diagnosis Discharge Date 01/24/2024 Admitting Diagnosis Acute Calculous cholecystitis DS: Discharge Diagnosis Discharge Diagnosis (1) Acute calculous cholecystitis: Code(s): K80.00 - Calculus of gallbladder with acute cholecystitis without obstruction Status: Acute (2) Obesity, morbid, BMI 40.0-49.9: Code(s): E66.01 - Morbid (severe) obesity due to excess calories Status: Acute (3) Choledocholithiasis with acute cholecystitis: Code(s): K80.42 - Calculus of bile duct with acute cholecystitis without obstruction Status: Acute (4) Elevated liver enzymes: Code(s): R74.8 - Abnormal levels of other serum enzymes Status: Acute Plan Acute cholecystitis CT of the abdomen pelvis showing cholelithiasis and gallbladder sludge with probable superimposed acute cholecystitis, possible distal common bile duct stones compatible with choledocholithiasis. Ultrasound of abdomen showing gallbladder wall thickening with mild dilatation of the common bile duct, fatty infiltration of the liver GI and General surgery consulted MRCP Cholelithiasis and choledocholithiasis with mild intra and extra hepatic biliary ductal dilation and gallbladder wall thickening with pericholecystic edema consistent with associated acute cholecystitis. Patient received a dose of Flagyl and Cipro while in the ED Continue pain control Continue nausea control PPI BID NPO 01/21 Laparoscopic cholecystomy CARISSA drain present monitor output Advance to clear liquids Follow-up CMP CBC in a.m. Advance diet per surgery 01/22 POD 1 full liquid diet CARISSA drain D/C elevated Liver enzymes Likely secondary to cholelithiasis with mild dilation the common bile Trend Obesity encourage increased on physical activity and lifestyle modifications Lipid panel pending encourage outpatient weight loss clinic BMI . Diet exercise counseling done. consult to dietitian Disposition: Discharged to home with family DS: Summary Hospital Course Reason for hospitalization: Acute Calculous cholecystitis Hospital Course: Admission: Medical Chart Is a 33-year-old male presented to the emergency room today with abdominal pain. Patient states he was eating some spicy tacos for dinner around 11:00 p.m. and started having epigastric pain when he went to lie down to sleep. He reports 1 episode of nausea and vomiting. Workup in the hospital included an abdomen pelvis CT which showed cholelithiasis and gallbladder sludge with prominent superimposed acute cholecystitis, possible distal common bile duct stones compatible with choledocholithiasis. Ultrasound of abdomen shows gallbladder wall thickening with mild dilatation of the common bile duct, fatty infiltration of the liver. Labs today showed a white blood cell count of 20.4, AST 93, ALT 57, alk-phos 160, troponin negative. UA was obtained and was negative. Blood cultures were obtained and pending. Patient was given 1 L of normal saline while in the ED, Zofran, Pepcid, morphine, Dilaudid, and Flagyl. Patient was started on Cipro as well. GI was consulted. On examination today patient is alert and oriented x3, lying in the bed. Family is at the bedside. Patient denies any fever, chills, nausea, vomiting, diarrhea, abdominal pain, chest pain or shortness of breath. MRCP done today, awaiting results. GI and General surgery consulted. Patient denies any acute pain at this time. 01/20: assumed care Patient seen post ERCP with stone removal, denies pain or any acute distress.) Laparatomy cholecystitis scheduled for a.m. 01/21: Patient underwent laparoscopic cholecystectomy, CARISSA drain in place will advance patient to clear liquid diet follow-up labs in the a.m. advance diet per surgery. Patient prior to surgery no acute distress postop lethargic but tolerated procedure well. 01/22: Patient POD 1 advanced diet to full liquid tolerating well pain contr
== END 2024-01-24 16:15 | disposition home or self-care (01) | DRG 418 ==
LOC: ANHED 04:17 → ANH3MED 04:26
PROVIDERS: Internal Medicine Gastroenterology; Nurse Practitioner Family; Physician Assistant; Surgery; Admitting Provider Internal Medicine; Emergency Provider Emergency Medicine; PCP Family Medicine; Visit Provider Nurse Practitioner Family
PROC: (CPT 43260; principal; 2024-01-21 12:00)
PROC: 0FT44ZZ Resection of Gallbladder, Percutaneous Endoscopic Approach (ICD-10-PCS; CPT 47562; principal; 2024-01-22 12:00)
DX: K80.64 Calculus of gallbladder and bile duct with chronic cholecystitis without obstruction (principal); Z68.41 Body mass index [BMI] 40.0-44.9, adult; E66.01 Morbid (severe) obesity due to excess calories; R74.8 Abnormal levels of other serum enzymes; K76.0 Fatty (change of) liver, not elsewhere classified; D72.829 Elevated white blood cell count, unspecified
CPT/HCPCS: 36415; 74177; 74183; 74329; 76376; 76705; 80053; 80061; 81003; 83605; 83690; 84484; 85025; 85027; 85610; 87040; 88304; 93005; 96361; 96375; 99285; A9270; A9577; C9113; G0378; J0330; J0690; J0744; J1100; J1170; J1650; J1836; J2001; J2250; J2270; J2405; J2704; J3010; J7030; J7120; Q9966; Q9967